=== PATIENT | female | born 1945 | race Caucasian/White ===

== ENCOUNTER 2019-04-18 15:18 | Inpatient (IN) ==
[2019-04-18] MEDS ORDERED: PROPOFOL 1,000 MG/100 ML BOTTLE IV ONE (15:48)
[2019-04-18] MEDS ORDERED: methylPREDNISolone SOD SUC 125 MG/2 ML VIAL IV STA (15:51)
[2019-04-18] MEDS ORDERED: LEVOFLOXACIN INJ 500 MG in PREMIX 1 EACH IV STA (15:51)
[2019-04-18] MEDS ORDERED: NOREPINEPHRINE 8 MG in SODIUM CHLORIDE 0.9% 242 ML IV PRN (15:53)
[2019-04-18] MEDS: PROPOFOL 1,000 MG/100 ML BOTTLE IV SCH (16:00)
[2019-04-18] MEDS ORDERED: PROPOFOL 1,000 MG/100 ML BOTTLE IV SCH (16:00)
[2019-04-18] MEDS ORDERED: VECURONIUM 10 MG VIAL IV ONE (16:07)
[2019-04-18] MEDS ORDERED: ETOMIDATE 20 MG/10 ML VIAL IV ONE (16:13)
[2019-04-18] MEDS ORDERED: ETOMIDATE 20 MG/10 ML VIAL IV STA (16:19)
[2019-04-18] MEDS ORDERED: NOREPINEPHRINE 4 MG/4 ML VIAL IV ONE ×2 (16:19→16:25)
[2019-04-18] MEDS ORDERED: SODIUM BICARBONATE 50 MEQ/50 ML VIAL IV STA (16:19)
[2019-04-18] MEDS ORDERED: VECURONIUM 10 MG VIAL IV STA ×2 (16:19→17:22)
[2019-04-18] MEDS ORDERED: SODIUM BICARBONATE 10 MEQ/10 ML SYRINGE IV ONE (16:19)
[2019-04-18 17:03] LABS: ABG Base Excess 0.9 MMOL/L (-2.5-2.5); ABG HCO3 25.1 MMOL/L (20-26); ABG PCO2 43.5 MM HG (35-48); ABG PH 7.388 (7.35-7.45); Allen Test Positive; Pt O2 Delivery Device Ventilator
[2019-04-18] MEDS ORDERED: MIDAZOLAM 100 MG in SODIUM CHLORIDE 0.9% 80 ML IV PRN (17:27)
[2019-04-18] MEDS ORDERED: ALBUTEROL 2.5 MG/3 ML NEB RESP TX PRN (17:27)
[2019-04-18] MEDS ORDERED: ONDANSETRON 4 MG/2 ML VIAL IV PRN (17:27)
[2019-04-18] MEDS ORDERED: ACETAMINOPHEN 325 MG TABLET PO PRN (17:27)
[2019-04-18] MEDS ORDERED: NOREPINEPHRINE 8 MG in SODIUM CHLORIDE 0.9% 242 ML IV SCH (17:30)
[2019-04-18] MEDS ORDERED: DEXTROSE 10% 250 ML BAG IV PRN (17:36)
[2019-04-18] MEDS ORDERED: GLUCAGON 1 MG VIAL IM PRN (17:36)
[2019-04-18 17:45] LABS: INR 0.9; PT Patient Result 10.1 SECS (9.6-12.2)
[2019-04-18 17:59] LABS: Albumin 3.2 G/DL (3.4-5.0); Bilirubin,Total 0.5 MG/DL (0.2-1.0); Calcium 8.9 MG/DL (8.5-10.1); Osmolality,Calculated 285.1 MOS/KG (273-304)
[2019-04-18 18:04] LABS: Apearance,Urine Slightly Hazy (Clear); Bacteria,Urine Many /HPF (Few); Bilirubin,Urine Negative (Negative); Blood, Urine Negative (Negative); Glucose,Urine (UA) Negative (Negative); Hyaline Casts,Urine 13 /LPF (0-3); Ketones,Urine Negative (Negative); Mucus,Urine Few /LPF (Occasional); Nitrite,Urine Positive (Negative); Protein,Urine 100 MG/DL; RBC,Urine 15 /HPF (0-4); Squamous Epithelial Cell,Urine Occasional /HPF (0-10); Urine Color Yellow (Yellow); Urine Specific Gravity 1.017 (1.001-1.035); Urine Urobilinogen < 2.0 EU/DL (0.2-1.0); WBC,Urine 47 /HPF (0-6)
[2019-04-18 18:10] LABS: Basophils % 0.3 % (0.0-0.8); Hematocrit 55.4 VOL% (35.7-47.0); Hemoglobin 16.7 GM/DL (12.0-16.0); Immature Granulocytes % 0.9 %; Immature Granulocytes Absolute 0.09 #; Lymphocytes # 0.8 10*3/uL (1.4-4.0); Lymphocytes % 8.7 % (21.3-54.2); Mean Corpuscular HGB Conc 30.1 GM/DL (32-36); Mean Corpuscular Volume 103.2 FL (87-102); Mean Platelet Volume 11.1 FL (9.6-12.0); Monocytes % 2.8 % (1.7-12.7); Neutrophils % 87.3 % (38.7-73.9); Platelet Count 273 T/CUMM (130-400); Red Blood Count 5.37 MC/CUMM (3.8-5.5); Red Cell Distribution Width 13.9 % (9.3-17.3); White Blood Count 9.6 T/CUMM (4-12)
[2019-04-18] MEDS ORDERED: methylPREDNISolone SOD SUC 40 MG/1 ML VIAL IM SCH (18:23)
[2019-04-18] MEDS: INSULIN LISPRO 100 UNIT/ML SUBCUT SCH ×2 (19:14→23:22)
[2019-04-18 19:52] LABS: ABG Base Excess 1.6 MMOL/L (-2.5-2.5); ABG HCO3 25.7 MMOL/L (20-26); ABG Oxygen Saturation 92.5 % (95-100); ABG PCO2 42.2 MM HG (35-48); ABG PH 7.408 (7.35-7.45); ABG PO2 57.2 MM HG (80-95); ABG TCO2 22.2 MMOL/L (23-27); Allen Test Positive; Pt O2 Delivery Device Ventilator
[2019-04-18] MEDS ORDERED: metroNIDAZOLE INJ 500 MG in PREMIX 1 EACH IV SCH (20:00)
[2019-04-18] MEDS: ALBUTEROL/IPRATROPIUM 3 ML NEB RESP TX SCH (20:06)
[2019-04-18] MEDS: ENOXAPARIN 40 MG/0.4 ML SYRINGE SUBCUT SCH (21:12)
[2019-04-18] MEDS: FUROSEMIDE 40 MG/4 ML VIAL IV SCH (21:13)
[2019-04-18] MEDS: PANTOPRAZOLE 40 MG VIAL IV SCH (21:19)
[2019-04-18] MEDS: LEVOFLOXACIN INJ 750 MG in PREMIX 1 EACH IV SCH (21:27)
[2019-04-19] MEDS: ALBUTEROL/IPRATROPIUM 3 ML NEB RESP TX SCH ×4 (00:04→19:59)
[2019-04-19] MEDS: PROPOFOL 1,000 MG/100 ML BOTTLE IV SCH ×5 (00:07→17:15)
[2019-04-19 04:02] LABS: ABG Base Excess 4.5 MMOL/L (-2.5-2.5); ABG HCO3 28.4 MMOL/L (20-26); ABG Oxygen Saturation 98.6 % (95-100); ABG PCO2 35.8 MM HG (35-48); ABG PH 7.494 (7.35-7.45); ABG PO2 98.5 MM HG (80-95); ABG TCO2 22.9 MMOL/L (23-27); Allen Test Positive; Pt O2 Delivery Device Ventilator
[2019-04-19 04:40] LABS: Basophils % 0.2 % (0.0-0.8); Hematocrit 49.6 VOL% (35.7-47.0); Hemoglobin 15.6 GM/DL (12.0-16.0); Immature Granulocytes % 0.5 %; Immature Granulocytes Absolute 0.02 #; Lymphocytes # 0.7 10*3/uL (1.4-4.0); Mean Corpuscular HGB Conc 31.5 GM/DL (32-36); Mean Corpuscular Volume 98.4 FL (87-102); Mean Platelet Volume 10.3 FL (9.6-12.0); Monocytes % 3.9 % (1.7-12.7); Neutrophils % 79.4 % (38.7-73.9); Platelet Count 223 T/CUMM (130-400); Red Blood Count 5.04 MC/CUMM (3.8-5.5); Red Cell Distribution Width 13.7 % (9.3-17.3); White Blood Count 4.4 T/CUMM (4-12)
[2019-04-19 05:40] LABS: Albumin 2.7 G/DL (3.4-5.0); Bilirubin,Total 0.4 MG/DL (0.2-1.0); Calcium 8.5 MG/DL (8.5-10.1); Osmolality,Calculated 282.5 MOS/KG (273-304); Risk Ratio 2.83; Total Protein 6.2 G/DL (6.4-8.3); VLDL CHOLESTEROL 40.2 MG/DL
[2019-04-19] MEDS: INSULIN LISPRO 100 UNIT/ML SUBCUT SCH ×4 (06:29→23:53)
[2019-04-19] MEDS ORDERED: MAGNESIUM SULF RIDER 4 GM in PREMIX 1 EACH IV PRN (07:05)
[2019-04-19] MEDS ORDERED: MAGNESIUM SULF RIDER 2 GM in PREMIX 1 EACH IV PRN (07:05)
[2019-04-19] MEDS: methylPREDNISolone SOD SUC 40 MG/1 ML VIAL IV SCH ×2 (08:35→16:46)
[2019-04-19] MEDS: FUROSEMIDE 40 MG/4 ML VIAL IV SCH ×2 (08:35→15:30)
[2019-04-19] MEDS: LACTULOSE 20 GM/30 ML UDCUP PO SCH ×3 (09:30→20:29)
[2019-04-19] MEDS: fentaNYL INJ 1,250 MCG in SODIUM CHLORIDE 0.9% 225 ML IV PRN ×2 (11:02→19:31)
[2019-04-19] MEDS ORDERED: DEXTROSE 10% 25 GM/250 ML BAG IV PRN (15:35)
[2019-04-19] MEDS ORDERED: NOREPINEPHRINE 4 MG/4 ML VIAL IV ONE (15:51)
[2019-04-19] MEDS ORDERED: NOREPINEPHRINE 8 MG in SODIUM CHLORIDE 0.9% 242 ML IV PRN (15:51)
[2019-04-19] MEDS: PANTOPRAZOLE 40 MG VIAL IV SCH (16:39)
[2019-04-19] MEDS ORDERED: FUROSEMIDE 40 MG/4 ML VIAL IV SCH (17:38)
[2019-04-19] MEDS: ENOXAPARIN 40 MG/0.4 ML SYRINGE SUBCUT SCH (20:29)
[2019-04-19] MEDS: LEVOFLOXACIN INJ 750 MG in PREMIX 1 EACH IV SCH (20:32)
[2019-04-20] MEDS: PROPOFOL 1,000 MG/100 ML BOTTLE IV SCH ×3 (00:08→08:14)
[2019-04-20] MEDS: ALBUTEROL/IPRATROPIUM 3 ML NEB RESP TX SCH ×4 (00:44→20:09)
[2019-04-20] MEDS: methylPREDNISolone SOD SUC 40 MG/1 ML VIAL IV SCH ×3 (01:54→16:42)
[2019-04-20 04:22] LABS: ABG Base Excess 4.1 MMOL/L (-2.5-2.5); ABG HCO3 31.4 MMOL/L (20-26); ABG Oxygen Saturation 97.2 % (95-100); ABG PCO2 57.7 MM HG (35-48); ABG PH 7.354 (7.35-7.45); ABG PO2 96.2 MM HG (80-95); ABG TCO2 33.2 MMOL/L (23-27); Allen Test Positive; Pt O2 Delivery Device Ventilator
[2019-04-20 04:43] LABS: Basophils % 0.2 % (0.0-0.8); Immature Granulocytes % 0.7 %; Immature Granulocytes Absolute 0.08 #; Lymphocytes # 0.6 10*3/uL (1.4-4.0); Lymphocytes % 5.4 % (21.3-54.2); Mean Corpuscular HGB Conc 31.3 GM/DL (32-36); Mean Corpuscular Volume 100.2 FL (87-102); Mean Platelet Volume 10.4 FL (9.6-12.0); Monocytes % 6.4 % (1.7-12.7); Neutrophils % 87.3 % (38.7-73.9); Platelet Count 316 T/CUMM (130-400); Red Blood Count 4.79 MC/CUMM (3.8-5.5)
[2019-04-20 05:17] LABS: Alanine Aminotransferase 9 U/L (13-56); Albumin 2.9 G/DL (3.4-5.0); Alkaline Phosphatase 77 U/L (45-117); Aspartate Amino Transferase 10 U/L (0-37); Bilirubin,Total < 0.39 MG/DL (0.2-1.0); Blood Urea Nitrogen 24 MG/DL (7-18); Calcium 8.6 MG/DL (8.5-10.1); Estimated Glom Filtration Rate 61 ML/MIN; Glucose 149 MG/DL (74-106); Osmolality,Calculated 285.4 MOS/KG (273-304); Total Protein 6.3 G/DL (6.4-8.3)
[2019-04-20] MEDS: INSULIN LISPRO 100 UNIT/ML SUBCUT SCH ×4 (06:02→21:07)
[2019-04-20 07:03] LABS: Lymphocytes 8 % (20-55); Polychromasia Slight; Segmented Neutrophils 91 % (50-85); Total Cells Counted 100
[2019-04-20 07:05] LABS: Stomatocytes Few
[2019-04-20 07:06] LABS: Platelet Estimate Normal
[2019-04-20] MEDS ORDERED: POTASSIUM CHLORIDE 20 MEQ/15 ML UDCUP PER TUBE PRN (07:15)
[2019-04-20] MEDS: FUROSEMIDE 40 MG/4 ML VIAL IV SCH ×2 (09:07→15:00)
[2019-04-20] MEDS: LACTULOSE 20 GM/30 ML UDCUP PO SCH (09:08)
[2019-04-20] MEDS ORDERED: PHENOL 1.4% THROAT SPRAY 177 ML BOTTLE PO PRN (09:38)
[2019-04-20] MEDS ORDERED: ALPRAZolam 0.25 MG TABLET PO PRN (10:15)
[2019-04-20] MEDS: THEOPHYLLINE ER 300 MG TABLET PO SCH ×2 (15:00→21:21)
[2019-04-20] MEDS: PANTOPRAZOLE 40 MG VIAL IV SCH (16:41)
[2019-04-20] MEDS: LEVOFLOXACIN INJ 750 MG in PREMIX 1 EACH IV SCH (21:17)
[2019-04-20] MEDS: ENOXAPARIN 40 MG/0.4 ML SYRINGE SUBCUT SCH (21:20)
[2019-04-20] MEDS: MONTELUKAST 10 MG TABLET PO SCH (21:21)
[2019-04-20] MEDS: MELATONIN 3 MG TABLET PO PRN (22:37)
[2019-04-21] MEDS: ALBUTEROL/IPRATROPIUM 3 ML NEB RESP TX SCH ×4 (01:12→20:30)
[2019-04-21] MEDS: methylPREDNISolone SOD SUC 40 MG/1 ML VIAL IV SCH ×2 (01:52→21:48)
[2019-04-21 05:30] LABS: Basophils % 0.1 % (0.0-0.8); Hemoglobin 15.5 GM/DL (12.0-16.0); Immature Granulocytes % 0.5 %; Immature Granulocytes Absolute 0.04 #; Lymphocytes # 0.7 10*3/uL (1.4-4.0); Lymphocytes % 9.3 % (21.3-54.2); Mean Corpuscular HGB Conc 31.6 GM/DL (32-36); Mean Corpuscular Volume 97.8 FL (87-102); Mean Platelet Volume 11.6 FL (9.6-12.0); Monocytes % 7.7 % (1.7-12.7); Neutrophils % 82.4 % (38.7-73.9); Platelet Count 215 T/CUMM (130-400); Red Blood Count 5.01 MC/CUMM (3.8-5.5); Red Cell Distribution Width 13.8 % (9.3-17.3); White Blood Count 7.9 T/CUMM (4-12)
[2019-04-21 05:53] LABS: Platelet Estimate Adequate
[2019-04-21 05:54] LABS: Hypochromasia Slight
[2019-04-21 06:04] LABS: Albumin 3.2 G/DL (3.4-5.0); Bilirubin,Total 0.8 MG/DL (0.2-1.0); Calcium 9.3 MG/DL (8.5-10.1); Osmolality,Calculated 282.5 MOS/KG (273-304)
[2019-04-21] MEDS: INSULIN LISPRO 100 UNIT/ML SUBCUT SCH ×4 (08:36→20:53)
[2019-04-21] MEDS: LACTULOSE 20 GM/30 ML UDCUP PO SCH (09:29)
[2019-04-21] MEDS: THEOPHYLLINE ER 300 MG TABLET PO SCH ×2 (09:30→21:50)
[2019-04-21] MEDS: FUROSEMIDE 40 MG/4 ML VIAL IV SCH ×2 (09:30→16:58)
[2019-04-21] MEDS: PANTOPRAZOLE 40 MG TABLET PO SCH (09:41)
[2019-04-21] MEDS: LEVOFLOXACIN INJ 750 MG in PREMIX 1 EACH IV SCH (21:45)
[2019-04-21] MEDS: MONTELUKAST 10 MG TABLET PO SCH (21:48)
[2019-04-21] MEDS: ENOXAPARIN 40 MG/0.4 ML SYRINGE SUBCUT SCH (21:48)
[2019-04-21] MEDS: MELATONIN 3 MG TABLET PO PRN (21:48)
[2019-04-22] MEDS: ALBUTEROL/IPRATROPIUM 3 ML NEB RESP TX SCH ×2 (01:10→07:20)
[2019-04-22 07:40] VITALS: BP 137/71
[2019-04-22] MEDS: INSULIN LISPRO 100 UNIT/ML SUBCUT SCH (08:07)
[2019-04-22] MEDS: PANTOPRAZOLE 40 MG TABLET PO SCH (08:54)
[2019-04-22] MEDS: THEOPHYLLINE ER 300 MG TABLET PO SCH (08:54)
[2019-04-22] MEDS: LACTULOSE 20 GM/30 ML UDCUP PO SCH (08:54)
[2019-04-22] MEDS: methylPREDNISolone SOD SUC 40 MG/1 ML VIAL IV SCH (08:55)
[2019-04-22] MEDS: FUROSEMIDE 40 MG/4 ML VIAL IV SCH (08:57)
== END 2019-04-22 10:56 | disposition home health service (06) | DRG 208 ==
LOC: EDUNIT# → N.ED 15:18 → N.EDINP 17:05 → SUATTDRO 17:05 → N.ICU 18:18 → N.5E 04-20 15:25
PROVIDERS: ADMIT Internal Medicine; ATTEND Internal Medicine

== ENCOUNTER 2020-12-25 19:36 | Inpatient (IN) ==
[2020-12-25] MEDS ORDERED: methylPREDNISolone SOD SUC 125 MG/2 ML VIAL IV STA (20:13)
[2020-12-25 20:15] LABS: Basophils % 0.4 % (0.0-0.8); Eosinophils # 0.1 10*3/uL (0.0-0.87); Eosinophils % 0.6 % (0.00-10.9); Hematocrit 52.6 VOL% (35.7-47.0); Hemoglobin 15.4 GM/DL (12.0-16.0); Immature Granulocytes % 1.4 %; Immature Granulocytes Absolute 0.14 #; Lymphocytes # 1.4 10*3/uL (1.4-4.0); Lymphocytes % 14.5 % (21.3-54.2); Mean Corpuscular HGB Conc 29.3 GM/DL (32-36); Mean Corpuscular Volume 103.1 FL (87-102); Mean Platelet Volume 9.5 FL (9.6-12.0); Monocytes % 8.4 % (1.7-12.7); Neutrophils % 74.7 % (38.7-73.9); Platelet Count 280 T/CUMM (130-400); Red Cell Distribution Width 14.6 % (9.3-17.3); White Blood Count 9.7 T/CUMM (4-12)
[2020-12-25 20:29] LABS: ABG Base Excess 1.4 MMOL/L (-2.5-2.5); ABG HCO3 25.3 MMOL/L (20-26); ABG Oxygen Saturation 84.8 % (95-100); ABG PO2 58.3 MM HG (80-95); ABG TCO2 30.7 MMOL/L (23-27)
[2020-12-25 20:31] LABS: ABG PH 7.186 (7.35-7.45)
[2020-12-25 20:32] LABS: ABG PCO2 91.9 MM HG (35-48)
[2020-12-25 20:51] LABS: Alanine Aminotransferase 12 U/L (13-56); Albumin 3.5 G/DL (3.4-5.0); Alkaline Phosphatase 105 U/L (45-117); Aspartate Amino Transferase 16 U/L (0-37); Bilirubin,Total < 0.39 MG/DL (0.20-1.00); Blood Urea Nitrogen 16 MG/DL (7-18); Calcium 8.5 MG/DL (8.5-10.1); Carbon Dioxide 35 MMOL/L (21-32); Estimated Glom Filtration Rate 89 ML/MIN; Glucose 117 MG/DL (74-106); Osmolality,Calculated 282.3 MOS/KG (273-304); Potassium 4.5 MMOL/L (3.5-5.1); Sodium 141 MMOL/L (136-145); Total Protein 6.9 G/DL (6.4-8.2)
[2020-12-25] MEDS ORDERED: FUROSEMIDE 40 MG/4 ML VIAL IV STA (21:28)
[2020-12-25] MEDS ORDERED: LEVOFLOXACIN INJ 750 MG/150 ML PREMIX IV STA (21:34)
[2020-12-25] MEDS ORDERED: ALBUTEROL/IPRATROPIUM 3 ML NEB RESP TX STA (23:05)
[2020-12-26 01:54] LABS: ABG Base Excess 2.2 MMOL/L (-2.5-2.5); ABG HCO3 33.6 MMOL/L (20-26); ABG Oxygen Saturation 84.4 % (95-100); ABG PO2 51.8 MM HG (80-95); ABG TCO2 36.3 MMOL/L (23-27)
[2020-12-26 01:56] LABS: ABG PCO2 86.8 MM HG (35-48); ABG PH 7.206 (7.35-7.45)
[2020-12-26] MEDS ORDERED: ALBUTEROL 2.5 MG/3 ML NEB RESP TX PRN (04:32)
[2020-12-26] MEDS ORDERED: DEXTROSE 50% 25 GM/50 ML VIAL IV PRN (04:32)
[2020-12-26] MEDS ORDERED: GLUCAGON 1 MG VIAL IM PRN (04:32)
[2020-12-26] MEDS ORDERED: ONDANSETRON 4 MG/2 ML VIAL IV PRN (04:32)
[2020-12-26] MEDS ORDERED: NIFEdipine 10 MG CAPSULE PO PRN (04:35)
[2020-12-26] MEDS: ALBUTEROL/IPRATROPIUM 3 ML NEB RESP TX SCH ×3 (07:08→19:10)
[2020-12-26 08:00] LABS: ABG Base Excess 5.8 MMOL/L (-2.5-2.5); ABG HCO3 29.5 MMOL/L (20-26); ABG Oxygen Saturation 91.6 % (95-100); ABG PCO2 52.2 MM HG (35-48); ABG PO2 58.3 MM HG (80-95); ABG TCO2 27.6 MMOL/L (23-27)
[2020-12-26] MEDS: INSULIN LISPRO 100 UNIT/ML SUBCUT SCH ×4 (08:12→21:47)
[2020-12-26] MEDS: PANTOPRAZOLE 40 MG VIAL IV SCH (08:45)
[2020-12-26] MEDS: LEVOFLOXACIN INJ 500 MG/100 ML PREMIX IV SCH (08:45)
[2020-12-26] MEDS: methylPREDNISolone SOD SUC 40 MG/1 ML VIAL IV SCH ×2 (08:46→21:50)
[2020-12-26] MEDS: acetaZOLAMIDE 250 MG TABLET PO SCH (10:01)
[2020-12-26] MEDS: THEOPHYLLINE ER 300 MG TABLET PO SCH ×2 (10:02→21:49)
[2020-12-26] MEDS: ENOXAPARIN 40 MG/0.4 ML SYRINGE SUBCUT SCH (10:02)
[2020-12-26] MEDS: MONTELUKAST 10 MG TABLET PO SCH (21:53)
[2020-12-26] MEDS ORDERED: diphenhydrAMINE CAP 25 MG CAPSULE PO ONE (23:27)
[2020-12-27] MEDS: ALBUTEROL/IPRATROPIUM 3 ML NEB RESP TX SCH ×4 (00:48→19:40)
[2020-12-27 04:27] LABS: Allen Test Positive; Pt O2 Delivery Device Other
[2020-12-27 04:55] LABS: ABG Base Excess 3.6 MMOL/L (-2.5-2.5); ABG HCO3 27.4 MMOL/L (20-26); ABG Oxygen Saturation 97.2 % (95-100); ABG PH 7.465 (7.35-7.45); ABG PO2 91.6 MM HG (80-95); ABG TCO2 28.6 MMOL/L (23-27)
[2020-12-27 05:19] LABS: Hematocrit 45.3 VOL% (35.7-47.0); Hemoglobin 14.2 GM/DL (12.0-16.0); Immature Granulocytes % 0.7 %; Immature Granulocytes Absolute 0.05 #; Lymphocytes # 0.8 10*3/uL (1.4-4.0); Lymphocytes % 12.2 % (21.3-54.2); Mean Corpuscular HGB Conc 31.3 GM/DL (32-36); Monocytes % 5.5 % (1.7-12.7); Neutrophils % 81.6 % (38.7-73.9); Platelet Count 288 T/CUMM (130-400); Red Blood Count 4.72 MC/CUMM (3.8-5.5); Red Cell Distribution Width 14.3 % (9.3-17.3); White Blood Count 6.7 T/CUMM (4-12)
[2020-12-27 05:55] LABS: Calcium 8.6 MG/DL (8.5-10.1); Osmolality,Calculated 283.5 MOS/KG (273-304); Potassium 3.7 MMOL/L (3.5-5.1)
[2020-12-27 05:57] LABS: Albumin 2.9 G/DL (3.4-5.0); Bilirubin,Total 0.6 MG/DL (0.20-1.00); Calcium 8.5 MG/DL (8.5-10.1); Osmolality,Calculated 287.3 MOS/KG (273-304); Potassium 3.8 MMOL/L (3.5-5.1); Total Protein 6.5 G/DL (6.4-8.2)
[2020-12-27] MEDS: INSULIN LISPRO 100 UNIT/ML SUBCUT SCH ×4 (07:25→21:26)
[2020-12-27] MEDS: ENOXAPARIN 40 MG/0.4 ML SYRINGE SUBCUT SCH ×2 (08:25→08:42)
[2020-12-27] MEDS: THEOPHYLLINE ER 300 MG TABLET PO SCH ×3 (08:26→21:12)
[2020-12-27] MEDS: methylPREDNISolone SOD SUC 40 MG/1 ML VIAL IV SCH ×3 (08:26→21:12)
[2020-12-27] MEDS: LEVOFLOXACIN INJ 500 MG/100 ML PREMIX IV SCH ×2 (08:26→08:42)
[2020-12-27] MEDS: PANTOPRAZOLE 40 MG VIAL IV SCH ×2 (08:26→08:42)
[2020-12-27] MEDS: acetaZOLAMIDE 250 MG TABLET PO SCH ×2 (08:27→08:42)
[2020-12-27] MEDS ORDERED: FUROSEMIDE 40 MG/4 ML VIAL IV ONE (09:15)
[2020-12-27] MEDS ORDERED: ALUMINUM/MAGNES/SIMETH MAX STR 30 ML UDCUP PO PRN (15:58)
[2020-12-27] MEDS: MONTELUKAST 10 MG TABLET PO SCH (21:12)
[2020-12-28] MEDS: ALBUTEROL/IPRATROPIUM 3 ML NEB RESP TX SCH ×4 (00:34→19:39)
[2020-12-28 05:26] LABS: Basophils % 0.1 % (0.0-0.8); Hematocrit 48.2 VOL% (35.7-47.0); Hemoglobin 15.5 GM/DL (12.0-16.0); Immature Granulocytes % 0.6 %; Immature Granulocytes Absolute 0.05 #; Lymphocytes # 0.6 10*3/uL (1.4-4.0); Lymphocytes % 7.6 % (21.3-54.2); Mean Corpuscular HGB Conc 32.2 GM/DL (32-36); Mean Corpuscular Volume 95.1 FL (87-102); Monocytes % 4.8 % (1.7-12.7); Neutrophils % 86.9 % (38.7-73.9); Platelet Count 320 T/CUMM (130-400); Red Blood Count 5.07 MC/CUMM (3.8-5.5); Red Cell Distribution Width 14.7 % (9.3-17.3); White Blood Count 7.8 T/CUMM (4-12)
[2020-12-28 05:52] LABS: Calcium 8.5 MG/DL (8.5-10.1); Osmolality,Calculated 288.3 MOS/KG (273-304); Potassium 3.5 MMOL/L (3.5-5.1)
[2020-12-28] MEDS: INSULIN LISPRO 100 UNIT/ML SUBCUT SCH ×4 (07:45→21:47)
[2020-12-28] MEDS: methylPREDNISolone SOD SUC 40 MG/1 ML VIAL IV SCH ×2 (08:08→20:19)
[2020-12-28] MEDS: PANTOPRAZOLE 40 MG VIAL IV SCH (08:08)
[2020-12-28] MEDS: LEVOFLOXACIN INJ 500 MG/100 ML PREMIX IV SCH (08:09)
[2020-12-28] MEDS: ENOXAPARIN 40 MG/0.4 ML SYRINGE SUBCUT SCH (08:09)
[2020-12-28] MEDS: THEOPHYLLINE ER 300 MG TABLET PO SCH (08:51)
[2020-12-28] MEDS: acetaZOLAMIDE 250 MG TABLET PO SCH (08:51)
[2020-12-28] MEDS: amLODIPine 10 MG TABLET PO SCH (08:51)
[2020-12-28] MEDS ORDERED: FUROSEMIDE 40 MG/4 ML VIAL IV SCH (09:00)
[2020-12-28] MEDS ORDERED: LACTULOSE 20 GM/30 ML UDCUP PO PRN (09:14)
[2020-12-28] MEDS ORDERED: LACTULOSE 20 GM/30 ML UDCUP PO ONE (09:15)
[2020-12-28] MEDS: POLYETHYLENE GLYCOL POWDER 17 GM PACK PO SCH (09:46)
[2020-12-28] MEDS: MONTELUKAST 10 MG TABLET PO SCH (20:18)
[2020-12-29] MEDS: ALBUTEROL/IPRATROPIUM 3 ML NEB RESP TX SCH ×4 (00:55→20:56)
[2020-12-29 05:59] LABS: Basophils % 0.1 % (0.0-0.8); Hematocrit 50.8 VOL% (35.7-47.0); Hemoglobin 15.8 GM/DL (12.0-16.0); Immature Granulocytes % 0.5 %; Immature Granulocytes Absolute 0.04 #; Lymphocytes # 0.7 10*3/uL (1.4-4.0); Lymphocytes % 9.8 % (21.3-54.2); Mean Corpuscular HGB Conc 31.1 GM/DL (32-36); Mean Corpuscular Volume 97.9 FL (87-102); Monocytes % 6.1 % (1.7-12.7); Neutrophils % 83.5 % (38.7-73.9); Platelet Count 299 T/CUMM (130-400); Red Blood Count 5.19 MC/CUMM (3.8-5.5); Red Cell Distribution Width 14.8 % (9.3-17.3); White Blood Count 7.5 T/CUMM (4-12)
[2020-12-29 06:22] LABS: Calcium 8.7 MG/DL (8.5-10.1); Osmolality,Calculated 288.3 MOS/KG (273-304)
[2020-12-29] MEDS: INSULIN LISPRO 100 UNIT/ML SUBCUT SCH ×4 (09:19→20:55)
[2020-12-29] MEDS: amLODIPine 10 MG TABLET PO SCH (09:48)
[2020-12-29] MEDS: ENOXAPARIN 40 MG/0.4 ML SYRINGE SUBCUT SCH (09:48)
[2020-12-29] MEDS: POLYETHYLENE GLYCOL POWDER 17 GM PACK PO SCH (09:48)
[2020-12-29] MEDS: predniSONE 20 MG TABLET PO SCH (09:49)
[2020-12-29] MEDS: acetaZOLAMIDE 250 MG TABLET PO SCH (09:49)
[2020-12-29] MEDS: THEOPHYLLINE ER 300 MG TABLET PO SCH (09:49)
[2020-12-29] MEDS: PANTOPRAZOLE 40 MG VIAL IV SCH (09:49)
[2020-12-29] MEDS: LEVOFLOXACIN INJ 500 MG/100 ML PREMIX IV SCH (09:50)
[2020-12-29] MEDS ORDERED: SODIUM PHOSPHATE ENEMA 133 ML BOTTLE RECTAL ONE (11:52)
[2020-12-29] MEDS: MONTELUKAST 10 MG TABLET PO SCH (21:19)
[2020-12-30] MEDS: ALBUTEROL/IPRATROPIUM 3 ML NEB RESP TX SCH ×4 (07:14→20:36)
[2020-12-30] MEDS: INSULIN LISPRO 100 UNIT/ML SUBCUT SCH ×4 (07:55→20:43)
[2020-12-30] MEDS: ENOXAPARIN 40 MG/0.4 ML SYRINGE SUBCUT SCH (09:14)
[2020-12-30] MEDS: PANTOPRAZOLE 40 MG VIAL IV SCH (09:14)
[2020-12-30] MEDS: amLODIPine 10 MG TABLET PO SCH (09:15)
[2020-12-30] MEDS: acetaZOLAMIDE 250 MG TABLET PO SCH (09:15)
[2020-12-30] MEDS: predniSONE 20 MG TABLET PO SCH (09:15)
[2020-12-30] MEDS: POLYETHYLENE GLYCOL POWDER 17 GM PACK PO SCH (09:15)
[2020-12-30] MEDS: THEOPHYLLINE ER 300 MG TABLET PO SCH (09:15)
[2020-12-30] MEDS: LEVOFLOXACIN INJ 500 MG/100 ML PREMIX IV SCH (09:16)
[2020-12-30] MEDS: MONTELUKAST 10 MG TABLET PO SCH (20:42)
[2020-12-31] MEDS: ALBUTEROL/IPRATROPIUM 3 ML NEB RESP TX SCH ×3 (01:56→14:57)
[2020-12-31] MEDS ORDERED: LINACLOTIDE 145 MCG CAPSULE PO SCH (07:30)
[2020-12-31] MEDS: INSULIN LISPRO 100 UNIT/ML SUBCUT SCH ×3 (09:14→16:45)
[2020-12-31] MEDS: predniSONE 20 MG TABLET PO SCH (09:22)
[2020-12-31] MEDS: acetaZOLAMIDE 250 MG TABLET PO SCH (09:22)
[2020-12-31] MEDS: THEOPHYLLINE ER 300 MG TABLET PO SCH (09:22)
[2020-12-31] MEDS: amLODIPine 10 MG TABLET PO SCH (09:22)
[2020-12-31] MEDS: ENOXAPARIN 40 MG/0.4 ML SYRINGE SUBCUT SCH (09:22)
[2020-12-31] MEDS: LEVOFLOXACIN INJ 500 MG/100 ML PREMIX IV SCH (09:23)
[2020-12-31] MEDS: PANTOPRAZOLE 40 MG VIAL IV SCH (09:23)
[2020-12-31] MEDS: POLYETHYLENE GLYCOL POWDER 17 GM PACK PO SCH (09:23)
[2020-12-31 12:02] VITALS: BP 147/82
[2021-01-01] MEDS ORDERED: predniSONE 20 MG TABLET PO SCH (09:00)
== END 2020-12-31 17:38 | disposition home or self-care (01) | DRG 189 ==
LOC: EDBD → EDUNIT# → N.ED 19:36 → SUATTDRO 12-26 01:49 → N.EDINP 12-26 01:49 → N.3E 12-26 11:06
PROVIDERS: ADMIT Family Medicine; ATTEND Internal Medicine